=== PATIENT | female | born 1945 | race Caucasian/White ===

== ENCOUNTER → 2017-04-04 | Outpatient (CLI) | payer MEDICARE, BC ==
[~2017-04-04] MED LIST: ADVIL DPS200 MG PO; ARED PO; ASA CHILDREN'S81 MG PO; CARVEDILOL25 MG PO; HYDROCHLOROTHIA25 MG PO; KEPPRA DPS500 MG PO; KLOR-CON M2020 ME1 PO; LAMICTAL XR300 MG PO; LAMICTAL200 MG PO; PRAVACHOL80 MG PO; SENOKOT-S TABL1 EACH PO; THERAPEUTIC MUL1 TAB PO; TYLENOL DPS325 MG PO; ULTRAM DPS50 MG PO; VASOTEC20 MG PO; VITAMIN D1000 UNI1 PO; WELLBUTRIN XL150 MG PO; [UNRECOGNIZED DRUG - OTHER] PO
== END | disposition home or self-care (01) ==
LOC: RAD.S 10:14
DX: Z12.31 Encounter for screening mammogram for malignant neoplasm of breast (principal); R92.1 Mammographic calcification found on diagnostic imaging of breast